=== PATIENT | male | born 1970 | race Caucasian/White ===

== ENCOUNTER 2017-04-08 13:05 | Emergency (ER) | payer OTHER ==
[~2017-04-08] VITALS: Ht 172.7 cm; Wt 80.0 kg
[2017-04-08] MEDS ORDERED: MORPHINE SULFATE 4 MG/ML CPJ (NOT FOR IM USE) IV ONE (13:30)
[2017-04-08 14:21] LABS: BASOPHILS % 0.2 % (0.0-2.0); EOSINOPHILS % 0.2 % (0.0-5.0); HEMATOCRIT. 47.2 % (42.0-52.0); HEMOGLOBIN. 16.4 g/dL (14.0-18.0); LYMPHOCYTES % 11.3 % (20.0-50.0); MEAN CORPUSCULAR HEMOGLOBIN 30.3 pg (28.0-32.0); MEAN PLATELET VOLUME 8.8 fl (7.4-10.4); MONOCYTES % 4.3 % (2.0-8.0); PLATELET 173 x1000/uL (130-400); RED BLOOD CELL COUNT 5.43 mill/uL (4.7-6.1); RED CELL DISTRIBUTION WIDTH 13.6 % (11.6-14.6)
[2017-04-08 14:27] LABS: CHLORIDE 105 mEq/L (98-107)
[2017-04-08 14:29] LABS: CARBON DIOXIDE 25 mEq/L (21-32)
[2017-04-08 14:33] LABS: ETHANOL BLOOD < 10 mg/dL
[2017-04-08 14:47] LABS: *AMPHETAMINES SCREEN URINE NEGATIVE (NEGATIVE); *BARBITURATES SCREEN URINE NEGATIVE (NEGATIVE); *BENZODIAZEPINES SCREEN URINE NEGATIVE (NEGATIVE); *COCAINE SCREEN URINE PRESUMTIVE POSITIVE (NEGATIVE); CANNABINOID URINE SCREEN NEGATIVE (NEGATIVE); METHADONE URINE SCREEN NEGATIVE (NEGATIVE); OPIATES URINE SCREEN PRESUMTIVE POSITIVE (NEGATIVE); PHENCYCLIDINE URINE SCREEN NEGATIVE (NEGATIVE)
[2017-04-08 17:10] VITALS: BP 124/71
== END 2017-04-08 17:16 | disposition home or self-care (01) ==
LOC: ER 13:18
DX: K29.20 Alcoholic gastritis without bleeding (principal); R07.89 Other chest pain; F17.210 Nicotine dependence, cigarettes, uncomplicated; F14.10 Cocaine abuse, uncomplicated; F11.10 Opioid abuse, uncomplicated; F10.10 Alcohol abuse, uncomplicated; Y90.0 Blood alcohol level of less than 20 mg/100 ml
CPT/HCPCS: 36415; 80048; 80305; 83690; 84484; 85025; 93005; 96374; 99285; G0482; J2270; Z7610

== ENCOUNTER 2019-03-09 00:01 | Emergency (ER) | payer OTHER ==
[~2019-03-09] VITALS: Ht 182.9 cm; Wt 91.0 kg
[2019-03-09 00:10] VITALS: BP 129/79
== END 2019-03-09 02:00 | disposition left against medical advice (07) ==
LOC: ER 00:01
DX: R06.02 Shortness of breath (principal); R07.89 Other chest pain; Z53.21 Procedure and treatment not carried out due to patient leaving prior to being seen by health care provider
CPT/HCPCS: 93005

== ENCOUNTER 2024-02-23 17:06 | Inpatient (IN) | payer SELFPAY ==
[~2024-02-23] VITALS: Ht 165.1 cm; Wt 86.7 kg
[2024-02-23] MEDS ORDERED: DICYCLOMINE 10 MG/5 ML ORAL SYR PO STA (17:48)
[2024-02-23] MEDS: ONDANSETRON 4MG ODT PO STA (18:26)
[2024-02-23] MEDS: MAGNESIUM/ALUMINUM HYDROXIDE/SIMETHICONE 30ML UDC PO STA (18:27)
[2024-02-23] MEDS: FAMOTIDINE 20MG TABLET PO ONE (18:27)
[2024-02-23] MEDS: DICYCLOMINE HCL 10MG CAPSULE PO NR (18:27)
[2024-02-23 18:39] LABS: CHLORIDE 106 mEq/L (98-107); POTASSIUM 3.7 mEq/L (3.5-5.1)
[2024-02-23 18:40] LABS: BASOPHILS % 0.2 % (0.0-2.0); CARBON DIOXIDE 26 mEq/L (21-32); EOSINOPHILS % 2.7 % (0.0-5.0); HEMATOCRIT. 41.5 % (42.0-52.0); HEMOGLOBIN. 14.3 g/dL (14.0-18.0); MEAN CORPUSCULAR HEMOGLOBIN 31.2 pg (28.0-32.0); MEAN CORPUSCULAR HGB CONC 34.5 g/dL (31.0-37.0); MEAN CORPUSCULAR VOLUME 90.4 fL (80.0-94.0); MEAN PLATELET VOLUME 9.4 fl (7.4-10.4); NEUTROPHILS % 61.1 % (40.0-76.0); PLATELET 150 x1000/uL (130-400); RED BLOOD CELL COUNT 4.59 mill/uL (4.7-6.1); RED CELL DISTRIBUTION WIDTH 12.4 % (11.6-14.6); SODIUM 138 mEq/L (136-145); WHITE BLOOD COUNT 5.2 x1000/uL (4.5-11.0)
[2024-02-23 18:41] LABS: CALCIUM 9.6 mg/dL (8.7-10.4)
[2024-02-23 18:45] LABS: CREATININE 0.8 mg/dL (0.6-1.3); GLUCOSE 100 mg/dL (70-105)
[2024-02-23 18:46] LABS: TROPONIN I HIGH SENSITIVITY 33 ng/L (3.0-53); UREA NITROGEN BLOOD 19 mg/dL (9-23)
[2024-02-23 18:47] LABS: ALANINE AMINOTRANSFERASE 50 IU/L (10-49); ALBUMIN 4.5 g/dL (3.2-4.8); ASPARTATE AMINOTRANSFERASE 29 IU/L (<34)
[2024-02-23 18:48] LABS: BILIRUBIN TOTAL 0.4 mg/dL (0.1-1.0); PROTEIN TOTAL 7.2 g/dL (6.0-8.3)
[2024-02-23 19:06] LABS: ETHANOL BLOOD < 10 mg/dL (<10)
[2024-02-23] MEDS: ASPIRIN 81MG TABLET PO ONE (19:43)
[2024-02-23 20:39] LABS: TROPONIN I HIGH SENSITIVITY 33 ng/L (3.0-53)
[2024-02-23 23:14] VITALS: BP 139/75; PULSE 63; RESP 16; TEMP 98.6
[2024-02-23 23:20] VITALS: BP 137/75; PULSE 63; RESP 16; TEMP 98.6
[2024-02-23] MEDS ORDERED: MAGNESIUM/ALUMINUM HYDROXIDE/SIMETHICONE 30ML UDC PO PRN (23:30)
[2024-02-23] MEDS ORDERED: ONDANSETRON HCL 4MG/2ML INJ IV PRN (23:30)
[2024-02-23] MEDS ORDERED: NITROGLYCERIN 0.4MG TABLET SL SL PRN (23:30)
[2024-02-23] MEDS ORDERED: CLONIDINE 0.1MG TABLET PO PRN (23:30)
[2024-02-23] MEDS ORDERED: ACETAMINOPHEN 650MG/20.3ML UDC GT PRN (23:30)
[2024-02-23] MEDS: ASPIRIN 325MG EC TABLET PO NR (23:55)
[2024-02-24] VITALS: BP 104/58; PULSE 61; RESP 15
[2024-02-24 01:44] LABS: CREATINE KINASE MB FRACTION 1.3 ng/mL (0.5-3.6)
[2024-02-24 04:00] VITALS: BP 118/67; PULSE 58; RESP 15; TEMP 98.3
[2024-02-24] MEDS: PANTOPRAZOLE 40MG DR TABLET PO SCH (06:09)
[2024-02-24 07:24] LABS: BASOPHILS % 0.4 % (0.0-2.0); EOSINOPHILS % 3.4 % (0.0-5.0); HEMATOCRIT. 44.5 % (42.0-52.0); HEMOGLOBIN. 15.5 g/dL (14.0-18.0); LYMPHOCYTES % 31.3 % (20.0-50.0); MEAN CORPUSCULAR HEMOGLOBIN 31.1 pg (28.0-32.0); MEAN CORPUSCULAR HGB CONC 34.8 g/dL (31.0-37.0); MEAN CORPUSCULAR VOLUME 89.3 fL (80.0-94.0); MEAN PLATELET VOLUME 9.4 fl (7.4-10.4); MONOCYTES % 5.8 % (2.0-8.0); NEUTROPHILS % 59.1 % (40.0-76.0); PLATELET 161 x1000/uL (130-400); RED BLOOD CELL COUNT 4.99 mill/uL (4.7-6.1); RED CELL DISTRIBUTION WIDTH 12.6 % (11.6-14.6); WHITE BLOOD COUNT 5.9 x1000/uL (4.5-11.0)
[2024-02-24 07:51] LABS: CHLORIDE 106 mEq/L (98-107); POTASSIUM 4.3 mEq/L (3.5-5.1); SODIUM 139 mEq/L (136-145)
[2024-02-24 07:52] LABS: CALCIUM 9.4 mg/dL (8.7-10.4); CARBON DIOXIDE 26 mEq/L (21-32)
[2024-02-24 07:54] LABS: CREATINE KINASE MB FRACTION 1.1 ng/mL (0.5-3.6)
[2024-02-24 07:57] LABS: ALANINE AMINOTRANSFERASE 45 IU/L (10-49); CREATININE 0.8 mg/dL (0.6-1.3); GLUCOSE 103 mg/dL (70-105); THYROID STIMULATING HORMONE 3.12 uIU/mL (0.55-4.78); TRIGLYCERIDE 256 mg/dL (0-150); UREA NITROGEN BLOOD 13 mg/dL (9-23)
[2024-02-24 07:58] LABS: LDL CHOLESTEROL 83 mg/dL (5-100)
[2024-02-24 07:59] LABS: ASPARTATE AMINOTRANSFERASE 25 IU/L (<34); CHOLESTEROL 138 mg/dL (<200); HDL CHOLESTEROL 30 mg/dL (>55); PROTEIN TOTAL 6.4 g/dL (6.0-8.3)
[2024-02-24 08:15] VITALS: BP 115/76; PULSE 77; RESP 16; TEMP 98.3
[2024-02-24 09:21] LABS: HEPATITIS B SURFACE ANTIGEN NEGATIVE (Negative)
[2024-02-24] MEDS: ASPIRIN 81MG EC TABLET PO SCH (09:37)
[2024-02-24] MEDS: ENOXAPARIN 40MG/0.4ML SYR SUBCUT SCH (09:39)
[2024-02-24 09:42] LABS: HEPATITIS C AB NON REACTIVE (Neg) (Negative)
[2024-02-24 12:15] VITALS: BP 131/78; PULSE 79; RESP 18; TEMP 98.4
[2024-02-24 12:57] LABS: BILIRUBIN TOTAL 0.5 mg/dL (0.1-1.0)
[2024-02-24 13:02] LABS: T4 FREE 1.58 ng/dL (0.89-1.76)
[2024-02-24 15:06] LABS: CREATINE KINASE MB FRACTION 0.9 ng/mL (0.5-3.6)
[2024-02-24] MEDS ORDERED: ASPI-1406 PO (15:25)
[2024-02-24] MEDS ORDERED: ATOR20TA65 PO (15:25)
[2024-02-24] MEDS ORDERED: PANT40TA51 PO (15:25)
[2024-02-24 15:32] LABS: *AMPHETAMINES SCREEN URINE NEGATIVE (NEGATIVE); *BARBITURATES SCREEN URINE NEGATIVE (NEGATIVE); *BENZODIAZEPINES SCREEN URINE NEGATIVE (NEGATIVE); *COCAINE SCREEN URINE NEGATIVE (NEGATIVE); CANNABINOID URINE SCREEN NEGATIVE (NEGATIVE); ECSTASY MDMA SCREEN URINE NEGATIVE (NEGATIVE); METHADONE URINE SCREEN NEGATIVE (NEGATIVE); OPIATES URINE SCREEN NEGATIVE (NEGATIVE); PHENCYCLIDINE URINE SCREEN NEGATIVE (NEGATIVE)
[2024-02-24 16:00] VITALS: BP 128/80; PULSE 62; RESP 18; TEMP 98.4
[2024-02-24 17:26] VITALS: BP 128/80; PULSE 62; TEMP 98.4; O2SAT 99
== END 2024-02-24 18:49 | disposition home or self-care (01) | DRG 190 ==
LOC: ER 17:10 → 3WST 19:51 → ER 23:08
PROVIDERS: ADMIT Internal Medicine; ATTEND Internal Medicine
DX: I21.4 Non-ST elevation (NSTEMI) myocardial infarction (principal); I10 Essential (primary) hypertension; K29.70 Gastritis, unspecified, without bleeding; Z79.82 Long term (current) use of aspirin; K21.9 Gastro-esophageal reflux disease without esophagitis
CPT/HCPCS: 36415; 71045; 76700; 80053; 80061; 80305; 80320; 82550; 82553; 83036; 83735; 83880; 84100; 84439; 84443; 84484; 85025; 85379; 86705; 87340; 93005; 93306; 93970; 99285; J1650; Q0162; G0480